=== PATIENT | male | born 1960 ===

== ENCOUNTER 2024-10-27 10:17 | Inpatient (IN) | payer OTHER ==
[~2024-10-27] VITALS: Ht 175.3 cm; Wt 87.0 kg
[2024-10-27 16:33] VITALS: BP 92/73
[2024-10-27 16:53] VITALS: BP 92/73
[2024-10-27] MEDS ORDERED: Benztropine Me0.5 MG PO (16:55)
[2024-10-27] MEDS ORDERED: FLUO10 PO (16:55)
[2024-10-27] MEDS ORDERED: SAPHRIS10 M1 SL ×2 (16:56→17:01)
[2024-10-27] MEDS ORDERED: MIRT15 PO (16:57)
[2024-10-27] MEDS ORDERED: PROP10 PO (16:59)
[2024-10-27] MEDS ORDERED: Polyethylene Glycol 3350 17 gm PO PRN (17:45)
[2024-10-27] MEDS ORDERED: Haloperidol Lactate Inj. 5 MG/ML Injection IM PRN (17:50)
[2024-10-27] MEDS ORDERED: Aluminum Hydroxide 320MG/5ML 473 ML PO PRN (17:50)
[2024-10-27] MEDS ORDERED: Ondansetron 4 MG SoluTab MM PRN (17:50)
[2024-10-27] MEDS ORDERED: DiphenhydrAMINE HCl 50 MG/ML 1ML Vial IM PRN (17:55)
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
[2024-10-27 20:10] VITALS: BP 92/61
--- NOTE | 2024-10-27 23:01 | NUR ---
MID SHIFT SUMMARY Patient is a very pleasant, alert and oriented man who was admitted to us from [place]. He spent his afternoon with his peers in the day room. and also participated in snack time. During his evening assessment, he stated He has chronic (fleeting) SI, and that he currently was having it. He denies HI, and tactile hallucinations, but says he frequently has AV hallucinations. He was very grateful for being sent to [facility]. He is hoping that some new strategies will work on his chronic SI. Will continue close monitoring every 15 minutes for safety and comfort
--- NOTE | 2024-10-28 04:16 | NUR ---
END OF SHIFT UPDATE ASSUMED CARE OF PT AT 0015. NO ACUTE CHANGES. PT HAS REMAINED IN BED THROUGHOUT THE NIGHT. Q15 MINUTE CHECKS TO CONTINUE.
[2024-10-28 07:47] LABS: CHOL/HDL RATIO 4.0; Cholesterol 203 mg/dL (50-200); HDL Cholesterol 51 mg/dL (>39); LDL/HDL RATIO 2.6; Low Density Lipoprotein Chol 133 mg/dL (0-110); Triglycerides 95 mg/dL (30-160); Very Low Density Lipoprot Chol 19 mg/dL (6-32)
--- NOTE | 2024-10-28 08:30 | NUR ---
PT C/O INCREASED ANXIETY THIS MORNING WHICH HE RATES AT 10/10. STATES THAT HE DIDN'T SLEEP WELL LAST NIGHT AND WOKE WITH NIGHT TERRORS. ENCOURAGED PT TO COMMUNICATE WITH STAFF IF THIS HAPPENS SO THAT WE CAN ASSIST HIM. PT MEDICATED PER EMAR WITH PRN FOR MASS SCORE OF 3. PT RETURNED TO HIS ROOM AND STATED HE WAS GOING TO TRY TO SLEEP.
[2024-10-28] MEDS ORDERED: Multivitamins 1 Tab PO SCH (09:00)
[2024-10-28 09:07] VITALS: BP 113/65
--- NOTE | 2024-10-28 16:28 | NUR ---
SHIFT SUMMARY: PT ALERT, ORIENTED AND COOPERATIVE WITH CARE. HE STATES THAT HE IS STILL HAVING THOUGHTS OF SUICIDE BUT DENIED HAVING INTENT OR A PLAN. PT AFFECT IS EUTHYMIC AND HAS APPROPRIATE EYE CONTACT. HE DENIES AUDITORY HALLUCINATIONS BUT STATES THAT HE IS STILL SEEING "SHADOW PEOPLE" HE STATES THAT HE DIDN'T SLEEP WELL LAST NIGHT AND HAD NIGHT TERRORS. THIS AM C/O 12/17 ANXIETY AND WAS MEDICATED PER EMAR WITH PRN. PT WAS PRESENT FOR MEALS AND GROUPS. HE SPENT MUCH OF HIS DAY RESTING IN HIS ROOM.
[2024-10-28 19:17] VITALS: BP 99/64
--- NOTE | 2024-10-28 20:35 | NUR ---
MEDICATION MASS SCORE: PATIENT C/O ANXIETY WORSENING PATIENT NEARS BEDTIME SECONDARY TO HAVING VIVID NIGHT "TERRORS" LAST NIGHT. HE REQUESTED VISTARIL "SINCE IT HELPED LAST TIME". GIVEN VISTARIL PRN FOR ANXIETY SCORE 5/10. CONTINUING TO MONITOR FOR SAFETY AND EFFECTIVENESS.
--- NOTE | 2024-10-29 04:49 | NUR ---
SHIFT SUMMARY: PATIENT WAS IN THE DAYROOM AT THE BEGINNING OF THE SHIFT, WATCHING TELEVISION WITH STAFF AND PEERS. HE STATED THAT HIS DAY WAS "OKAY". HE STATED, "I'M LEARNING A LOT HERE. I WANT TO LEARN A LOT OF DIFFERENT WAYS TO COPE." HE WAS PLEASANT AND COOPERATIVE WITH CARES. HE DENIED SUICIDAL IDEATION, THOUGHTS OF SELF HARMING AND A/V/T HALLUCINATIONS. HE PARTICIPATED IN SNACK AND WRAP UP GROUP AT 2030 IN THE DINING AREA, AND WAS COMPLIANT WITH EVENING MEDICATIONS. HE REQUESTED AND WAS GIVEN VISTARIL WITH HIS EVENING MEDS, FOR 3/10 ANXIETY SECONDARY TO CONCERN OF A REPEAT OF NIGHT TERRORS HAPPENED THE NIGHT BEFORE. THE VISTARIL WAS EFFECTIVE, WITH PATIENT RESTING QUIETLY THROUGHOUT THE NIGHT WITH EYES CLOSED AND RESPIRATIONS CONFIRMED. CONTINUOUS MONITORING FOR SAFETY WITH Q15 MINUTE CHECKS.
[2024-10-29 08:49] VITALS: BP 111/71
--- NOTE | 2024-10-29 17:17 | NUR ---
SHIFT SUMMARY PT IS AA&O TO PERSON, PLACE, AND SITUATION. SPEECH AND EYE CONTACT IS APPROPRIATE. HE REPORTS MOOD ANXIOUS. AFFECT IS RELAXED AND CALM. HE REPORTS PASSIVE SI. HE DENIES AH. HE REPORTS SHADOW PEOPLE. HE HAS BEEN UP FOR MEALS AND GROUPS. HE HAS BEEN IN THE TV ROOM OCCASIONALLY. PT IS COMPLIANT WITH MEDICATIONS. HE DENIES ANY SIDE EFFECTS. ABILIFY 5MG WAS ADDED TO MEDICATIONS TODAY. PT DENIES ANY QUESTIONS OR CONCERNS. WILL CONTINUE PLAN OF CARE
[2024-10-29 19:17] VITALS: BP 144/129
[2024-10-29 19:19] VITALS: BP 110/69
--- NOTE | 2024-10-30 05:37 | NUR ---
SHIFT SUMMARY Pt is A&O, calm, cooperative, eye contact is appropriate. Pt s mood is anxious, depressed affect is constricted. Pt endorses having SI thoughts, but has no plan, intent, or means at this time. Pt also endorses VH of shadow movement in his peripheral vision. Pt denies HI and AH. Pt endorsed some discomfort in his left shoulder RT shoulder replacement, but did not rate his pain and declined PRN medications. He stated that he normally uses [place] Patches for shoulder pain. Pt was active on the milieu during the evening, watching TV with peers. Staff continues to monitor q15m for safety and wellness.
[2024-10-30 08:04] VITALS: BP 90/72
[2024-10-30 08:50] VITALS: BP 101/70
[2024-10-30] MEDS ORDERED: Lidocaine 4% 1 Patch TOP SCH (13:05)
[2024-10-30 13:11] VITALS: BP 111/74
--- NOTE | 2024-10-30 14:51 | NUR ---
SHIFT SUMMARY NO ACUTE EVENTS TODAY. PT DENIES HI, AVTH. ENDORSES SI THAT IS CHRONIC AND JUST "SITS THERE", W/ NO INTENT OR PLAN TO ACT ON SI. PT C/O OF PAIN IN LEFT SHOULDER FROM PREVIOUS SHOULDER SURGERY. MANAGED WELL PER PT W/ IBUPROFEN AND LIDOCAINE PATCH. PT ALSO EXPRESSED THIS AM THAT HE GETS "TRIGGERED" WHEN HE HEARS OTHERS "COMPLAINING ABOUT THEIR PROBLEMS".
[2024-10-30 19:35] VITALS: BP 101/64
--- NOTE | 2024-10-30 23:47 | NUR ---
SHIFT SUMMARY Pt is A&O, calm, cooperative, eye contact is appropriate. Pt s mood is "piss poor," depressed, affect is constricted. Pt endorses having SI thought, which are chronic, but feels extremely safe here. Pt also endorses VH of shadows. Pt denies HI and AH. Pt stated that his depression increased today after he experienced a VH of a shadow that tried to get out of the room when he lay down for a nap. Pt asked for PRN melatonin for sleep and hydroxyzine for anxiety 10/10w before he goes to bed. Staff continues to monitor q15m for safety and wellness.
--- NOTE | 2024-10-31 05:02 | NUR ---
ASSUMED CARE AT 0000. REPORT TAKEN FROM MARCIANO JAIME. PT HAS BEEN ASLEEP WITHOUT ANY INTERRUPTIONS. WILL CONTINUE TO MONITOR Q 15 MINS.
[2024-10-31 07:53] VITALS: BP 99/66
[2024-10-31 14:16] VITALS: BP 113/81
--- NOTE | 2024-10-31 17:28 | NUR ---
SHIFT SUMMARY PT CONTINUES TO ENDORSE SI W/ NO INTENT TO ACT/PLANS. PT STATES THAT HE FEELS SAFE ON UNIT. PT STATES THAT SI WAS WORSE THIS AM D/T PT'S SAYING "MEAN THINGS" ABOUT SOMEONE, WOULD NOT ELABORATE. PT ALSO ENDORSES VISUAL HALLUCINATIONS IN THE "LIKE SHADOWS IN THE CORNER OF MY EYE". PT PLEASANT AND COOPERATIVE, HAS BEEN SLEEPING/NAPPING OR IN DAYROOM. DENIES HI AND ATH. PT BLOODPRESSURE SOFT, DR NOTIFIED W/ PROPANOLOL ORDER CHANGED.
[2024-10-31 19:21] VITALS: BP 106/77
--- NOTE | 2024-11-01 06:14 | NUR ---
SHIFT SUMMARY Pt is A&O, calm, cooperative, eye contact is appropriate. Pt s mood is isolative, depressed, affect is constricted. Pt endorses having SI thoughts, which are chronic, without plan or intent and states that he is safe here. Pt also endorses VH of "shadows." Pt denies HI and AH. Pt stated his paranoia "spiked" today while in his room and has been very anxious. PRN hydroxyzine given at HS med pass, MASS score 2. Pt active on the milieu throughout the evening, watching TV in the dayroom with peers. Staff continues to monitor q15m for safety and wellness.
[2024-11-01 08:49] VITALS: BP 109/57
[2024-11-01 15:16] VITALS: BP 108/71
--- NOTE | 2024-11-01 17:08 | NUR ---
SHIFT SUMMARY PT ENDORSES SI WITHOUT A PLAN. HE ENDORSES FEELING DEPRESSED. HE WAS CALM AND COMPLIANT WITH ALL MEDICATIONS AND MILIEU BEHAVIOR. PT DENIES ANY HUALLUCINATIONS. HE C/O ANXIETY 11/17 THIS AM AND WAS MEDICATED WITH PRN VISTARIL (SEE MASS SCORE). PT HOLD AND VOLUNTARY FORM SIGNED. NO OTHER ACUTE ACTIVITY TO REPORT.
[2024-11-01 19:00] VITALS: BP 124/86
--- NOTE | 2024-11-02 06:02 | NUR ---
SHIFT SUMMARY Pt is A&O, calm, cooperative, eye contact is appropriate. Pt s mood is "tired," depressed, affect constricted. Endorses having SI thoughts, which are chronic, without plan or intent and states that he is safe here. Pt also endorses VH of shadows. Pt denies HI, AH, and current pain. Pt has PRN zolpidem available now, and did request it along with his HS meds. Staff continues to monitor q15m for safety and wellness.
--- NOTE | 2024-11-02 17:03 | NUR ---
SHIFT SUMMARY PT CALM AND COOPERATIVE THIS SHIFT. HE ENDORSES SI WITHOUT A PLAN AND STATES HE FEELS LIKE HE GOT MUCH BETTER SLEEP AFTER RECIEVING THE AMBIEN LAST NIGHT. PT WAS ACTIVE IN THE MILIEU AND CURTEOUS TO PEERS. HE DENIES HI/AH/VH/TH. PT IS COMPLIANT WITH MEDICATIONS. NO PRN MEDICATIONS WERE NEEDED THIS SHIFT. NO ACUTE ACTIVITY TO REPORT THIS SHIFT.
[2024-11-02 20:53] VITALS: BP 132/88
--- NOTE | 2024-11-03 04:09 | NUR ---
SHIFT SUMMARY: PATIENT WAS IN THE DAYROOM AT THE BEGINNING OF THE SHIFT. HE ANSWERED POLICE COMMUNICATIONS OPERATOR QUESTIONS IN A LOGICAL AND LINEAR MANNER. HE STATED THAT "I ALWAYS FEEL SUICIDAL" BUT ADDED, "I FEEL SAFE HERE AND I WON'T DO ANYTHING HERE". HE STATED CONCERNS ABOUT HIS DISCHARGE AND GOING BACK TO [place], ALTHOUGH HE STATED, "MY ROOMMATE IS ALSO MY FRIEND, AND HE IS SUPPORTIVE". HE DENIED THOUGHTS OF SELF HARMING OR A/V/T HALLUCINATIONS, ALTHOUGH HE STATED, "SOMETIMES I FEEL LIKE THERE IS SOMETHING OR SOMEONE WHO WANTS ME TO GO AHEAD AND ". HE STATED HE "CAN RESIST" IN A SAFE ENVIRONMENT, AND NAMED THE [facility] A SAFE ENVIRONMENT. PATIENT PARTICIPATED IN SNACK AND WRAP UP GROUP AT 2030. HE WAS COMPLIANT WITH EVENING MEDICATIONS. HE STAYED UP TO WATCH TELEVISION FOR A TIME, AND THEN WENT TO BED, WHERE HE WAS NOTED TO BE RESTING QUIETLY WITH EYES CLOSED AND RESPIRATIONS CONFIRMED FOR THE REMAINDER OF THE SHIFT. CONTINUING TO MONITOR FOR SAFETY WITH Q15 MINUTE CHECKS.
[2024-11-03 09:07] VITALS: BP 156/71
[2024-11-03 14:47] VITALS: BP 137/96
--- NOTE | 2024-11-03 17:15 | NUR ---
SHIFT SUMMARY PT DENIES HI. THIS AM HE ENDORSED HEARING A VOICE TELL HIM, "WHY HAVEN'T YOU KILLED YOURSELF YET" WHICH MADE HIS SI "WORSE" TODAY. DENIES ANY PLAN TO ACT/INTENT. SEE'S SHADOW SHAPES/PEOPLE. PT HAS BEEN PLEASANT AND COOPERATIVE AND GOING TO GROUPS/MEALS. IS CURRENTLY WATCHING TV IN DAYROOM AT THIS TIME. NO ACUTE EVENTS TODAY.
[2024-11-03 19:34] VITALS: BP 116/73
--- NOTE | 2024-11-04 04:23 | NUR ---
SHIFT SUMMARY: PATIENT WAS IN THE DAYROOM WATCHING TELEVISION WITH STAFF AND PEERS AT THE BEGINNING OF THE SHIFT. HE WAS IN A PLEASANT AND FRIENDLY MOOD, AND STATED THAT THE DAY "WENT PRETTY WELL". HE DENIED SUICIDAL IDEATION, THOUGHTS OF SELF HARMING AND A/V/T HALLUCINATIONS AT THAT MOMENT. HOWEVER, HE DID ELABORATE THAT HE STILL HAS "FLEETING THOUGHTS THAT TELL ME TO KILL MYSELF OR ASK WHY I HAVEN'T YET". HE WAS ABLE TO NAME SOME COPING SKILLS TO HELP GET HIM THROUGH THOSE TIMES. HE STATED, "WATCHING TELEVISION IS A GOOD COPING SKILL FOR ME, BECAUSE IT DISTRACTS ME FROM THE VOICE". HE STATED THAT HE KNOWS "I WILL STILL FEEL SUICIDAL" BUT THAT HE HOPES "WITH THE COPING SKILLS AND MY SUPPORT SYSTEM I CAN GET PAST THEM". HE PARTICIPATED IN SNACK AND WRAP UP GROUP IN THE DINING AREA AT 2030, AND WAS COMPLIANT WITH EVENING MEDICATIONS. HE REQUESTED AND WAS GIVEN AMBIEN FOR INSOMNIA. HE STATED, "I LIKE IT BECAUSE WHEN I TAKE IT I DON'T HAVE NIGHTMARES". HE REMAINED UP FOR A TIME AFTER SNACK, AND WAS THEN NOTED TO BE IN BED RESTING WITH EYES CLOSED AND RESPIRATIONS CONFIRMED FOR THE REMAINDER OF THE SHIFT. CONTINUING TO MONITOR FOR SAFETY WITH Q15 MINUTE CHECKS.
[2024-11-04 07:29] VITALS: BP 102/71
[2024-11-04 08:11] VITALS: BP 121/72
--- NOTE | 2024-11-04 10:24 | NUR ---
SHIFT ASSESSMENT: PT WAS OUT IN THE PT MILIEU AT THE START OF SHIFT. HE ENDORSED SI WITHOUT A PLAN AND ALSO ENDORSED AUDITORY/VISUAL HALLUCINATIONS, "VOICES TALKING ABOUT MY EXISTANCE AND HOW IT WOULD BE BETTER IF I WASN'T HERE. I SEE SHADOWS AND THAT KICKS IN MY PARANOIA." PT DENIED ANXIETY AT THIS TIME. HE REPORTED 7/10w PAIN TO HIS LEFT SHOULDER. HE DESCRIBED HIS MOOD SO FAR SO GOOD...ANYTHING CAN HAPPEN TO MAKE IT A BAD DAY THOUGH." PT WAS PLEASANT AND COOPERATIVE WITH CARE.
--- NOTE | 2024-11-04 17:45 | NUR ---
PT HAS ATTENDED GROUPS AND BEEN ACTIVE IN THE PT MILIEU. HE HAS BEEN PLEASANT AND COOPERATIVE WITH CARE. PT HAS APPEARED TO REMAIN IN GOOD HUMOR. HE IS PRESENTLY WATCHING A MOVIE WITH PEERS.
[2024-11-04 20:02] VITALS: BP 118/78
--- NOTE | 2024-11-05 04:41 | NUR ---
SHIFT SUMMARY: PATIENT WAS UP IN THE MILIEU AT THE BEGINNING OF THE SHIFT. HE WAS WATCHING TELEVISION IN THE DAY ROOM AND INTERACTING PLEASANTLY WITH STAFF AND PEERS. HE WAS ABLE TO ANSWER ALTERATION HAND QUESTIONS IN A LOGICAL AND LINEAR MANNER. HE STATED, "I ALWAYS HAVE SOME FEELINGS OF SUICIDE," BUT ADDED, "I THINK I CAN USE THE COPING SKILLS I'VE LEARNED HERE. THEY ARE HELPING." HE STATED, "I FEEL SAFE HERE, LIKE I CAN TALK TO SOMEONE IF I NEED TO." HE DID ADMIT TO "SUPPORTIVE FRIENDS" AT HOME. HE STATED THAT HE WAS NOT HAVING A/V/T HALLUCINATIONS, "BUT SOMETIMES THERE IS A VOICE, AND IT TELLS ME TO KILL MYSELF OR ASKS ME WHY I HAVEN'T DONE IT YET." HE STATED, "WATCHING TELEVISION OR TALKING TO OTHERS HELPS DISTRACT ME FROM THE VOICE." HE PARTICIPATED IN SNACK AND WRAP UP GROUP AT 2030, AND THEN WATCHED TELEVISION FOR A TIME. HE THEN WENT TO BED, WHERE HE WAS NOTED TO BE RESTING QUIETLY WITH EYES CLOSED AND RESPIRATIONS CONFIRMED FOR THE REMAINDER OF THE SHIFT. CONTINUING TO MONITOR FOR SAFETY WITH Q15 MINUTE CHECKS.
[2024-11-05 09:39] VITALS: BP 115/79
--- NOTE | 2024-11-05 17:15 | NUR ---
SHIFT SUMMARY: PT ALERT, ORIENTED AND COOPERATIVE WITH CARE. PT STATES THAT HE IS HAVING SUICIDAL THOUGHTS BUT DENIES A PLAN OR INTENT WHILE IN U. PT C/O HEADACHE TODAY AND WAS MEDICATED PER EMAR WITH PRN MEDICATIONS AND REPORTED RELIEF FROM PAIN. PT STATES THAT HE WOKE UP DURING THE NIGHT AND SAW SOMEON THAT "WASN'T THERE STANDING OVER MY BED". HE REPORTS THAT HE HAD A HARD TIME SLEEPING AFTER THAT. PT ACTIVE IN UNIT MILIEU TALKING WITH PEERS AND STAFF. HE SPENT TIME IN THE DAY ROOMM WATCHING TV AND ATTENDED GROUP.
[2024-11-05 19:22] VITALS: BP 115/87
--- NOTE | 2024-11-06 04:24 | NUR ---
SHIFT SUMMARY: PT A/O X4. PT STATES THAT HE IS SI POSITIVE WITH NO PLAN TO HARM SELF WHILE HERE. DOES HAVE AH ALSO FOR PARANOIA TO HEARING NOISE BUT UNABLE TO IDENTIFY WHAT IT IS SAYING. PT FEELS SAFE HERE IN THE U. HAS SLEPT SINCE GOING TO BED AROUND 2200. WILL CONTINUE TO MONITOR Q 15 MIN FOR SAFETY AND WELLNESS.
[2024-11-06 07:56] VITALS: BP 109/71
--- NOTE | 2024-11-06 16:36 | NUR ---
SHIFT SUMMARY: PT ALERT, ORIENTED AND COOPERATIVE WITH CARE. STATED THAT HE WAS FEELING "A LITTLE ROUGH" THIS MORNING. STATES, "I HAD NIGHTMARES LAST NIGHT". HE STATES THAT HE HAS THOUGHTS OF SELF HARM BUT DENIES INTENT OR PLAN. HE WAS MEDICATED THIS AM WITH PRN PER EMAR FOR HEADACHE AND REPORTED RELIEF. PT WAS ACTIVE IN THE UNIT MILIEU. SPENT TIME IN THE DAY ROOM WATCHING TV, TALKING WITH PEERS AND STAFF. HE ATTENED AFTERNOON GROUP AND WAS PRESENT FOR MEALS.
[2024-11-06 20:48] VITALS: BP 120/76
--- NOTE | 2024-11-06 23:09 | NUR ---
pt c/o heartburn frequently this evening. Stated that he has been suffering with this for 2-3 weeks. Was given medication this evening per orders and per his request but patient would like daily med to decrease acid if possible. Will review with MD tomorrow.
--- NOTE | 2024-11-07 04:22 | NUR ---
SHIFT SUMMARY: THIS RN TOOK OVER CARE OF PATIENT AT 0030. PATIENT HAS C/O HEARTBURN AND WOULD LIKE A DAILY MEDICATION. PATIENT WENT TO BED AFTER SNACK AT 2200, AND WAS NOTED TO BE RESTING QUIETLY WITH EYES CLOSED AND RESPIRATIONS CONFIRMED FOR THE REMAINDER OF THE SHIFT. NO ISSUES OR CONCERNS NOTED, OTHER THAN THE STOMACH ACID CONCERN. CONTINUING TO MONITOR FOR SAFETY WITH Q15 MINUTE CHECKS.
[2024-11-07 07:46] VITALS: BP 119/83
--- NOTE | 2024-11-07 17:45 | NUR ---
SHIFT SUMMARY: PT ALERT, ORIENTED AND COOPERATIVE WITH CARE. STATES THAT HE DIDN'T SLEEP WELL LASTNIGHT AND THAT HE HAD NIGHTMARES. VERBALIZES PASSIVE THOUGHTS OF SELF HARM BUT DENIES HAVING A PLAN OR INTENT. PT HAS APPROPRIATE EYE CONTACT AND EUTHYMIC AFFECT. PT WAS ACTIVE IN UNIT MILIEU, SPENT TIME IN THE DAY ROOM WATCHING TV AND TALKING WITH PEERS AND STAFF.
--- NOTE | 2024-11-07 19:18 | NUR ---
PT CONTINUES TO C/O FEELING ACID REFLUX AND NOT TOLERATING EATING/DRINKING WELL. STATES HE THREW UP TWICE TODAY IN BATHROOM. PT DESCRIBES FEELING BURNING AND " IF SOMETHING IS GETTING STUCK RIGHT HERE" AND POINTS TO LOW STERNUM. ASKED IF PATIENT HAD EVER BEEN TOLD HE HAS MEDICAL ISSUES SUCH A NARROWING IN THE ESOPHAGUS OR A HIATAL HERNIA AND HE STATES NO. HE STATES THE PAIN GETS SO INTENSE AFTER EATING THAT HE NEEDS TO VOMIT.
--- NOTE | 2024-11-08 04:27 | NUR ---
SHIFT SUMMARY: THIS RN TOOK OVER CARE OF PATIENT AT 0030. PATIENT WOULD LIKE OMEPRAZOLE OR SIMILAR TO HELP WITH HIS ESOPHAGEAL ISSUES. HE IS WILLING TO SEE A HOSPITALIST IF NEEDED. HE WAS RESTING QUIETLY IN BED WITH EYES CLOSED AND RESPIRATIONS CONFIRMED FOR THE REMAINDER OF THE SHIFT. CONTINUING TO MONITOR FOR SAFETY WITH Q15 MINUTE CHECKS.
[2024-11-08 07:49] VITALS: BP 113/87
--- NOTE | 2024-11-08 17:36 | NUR ---
SHIFT SUMMARY PT HAS BEEN UP ALL DAY AND ENGAGED IN THE MILIEU, PARTICIPATING IN ALL GROUPS AND MEALS. HE IS COMPLIANT WITH MEDICATIONS AND VERY PLESANT. HE DOES ENDORSE VERY "FAINT" FLEETING THOUGHTS OF SELF HARM. STATES NOT HAVING A PLAN OR INTENT. HE DID ASK FOR MAALOX THIS MORNING AFTER BKFT AND HAS DENIED ANYOTHER ISSUES THE REST OF THE DAY. PT HAS RECEIVED Q15 MIN VISUAL SAFETY CHECKS THIS SHIFT
[2024-11-08 20:46] VITALS: BP 133/89
--- NOTE | 2024-11-08 23:51 | NUR ---
MID SHIFT SUMMARY FOR REPORT OFF: PT HAD UNEVENTFUL EVENING. PARTICIPATED IN SNACK AND WATCHED TV FOR A SHORT TIME. C/O STOMACH/ESOPHAGEAL PAIN AFTER ANY INTAKE OF FOOD/FLUIDS. MAALOX GIVEN PER HIS REQUEST AND PRN ORDERS. DENIED ANY ACTIVE THOUGHTS OF SUICIDE BUT DID HAVE INCREASED ANXIETY AND VISUAL HALLUCINATIONS THIS EVENING. MEDICATED WITH ZYPREXA PER ORDERS. PT CURRENTLY SLEEPING IN ROOM.
--- NOTE | 2024-11-09 04:34 | NUR ---
SHIFT SUMMARY took over care at 0030. Patient has been sleeping rather restlessly since that time. Please see MID SHIFT SUMMARY under nurses notes for more detail ffrom earlier in the evening. Will continue close monitoring every 15 minutes for safety and comfort
[2024-11-09 07:48] VITALS: BP 101/68
[2024-11-09] MEDS ORDERED: ABILIFY MYCITE20 M2 PO (12:35)
[2024-11-09] MEDS ORDERED: LORA10ER PO (12:36)
--- NOTE | 2024-11-09 12:51 | NUR ---
MID SHIFT SUMMARY PT ENDORSED VISUAL HALLUCINATIONS OF SLIGHT FLOATING SHADOWS. HE WILL DC AT 2PM TODAY WITH SECURE TRANSPORT TO HIS HOME. SAFETY PLAN COMPLETED WITH CECY TARIQ.
--- NOTE | 2024-11-09 13:04 | NUR ---
Patient is up for discharge today. His safety plan was created, with his help, in the even he has symptoms post discharge. After finding out that his discharge was definite for this day, he told A that "if I have to leave, I will just kill myself". Patient has not reported SI for days, since the last time staff planned to discharge him, which resulted in a longer stay. This grant writer notified the provider and tried to talk to the patient who states "I am not ready, I'm having thoughts". Also, patient was asked what pharmacy to he'd like his prescriptions sent to and the patient stated "i am not going to pick them up anyways". Patient sat in his room rather than in the dinning room when lunch arrived. He says "i'm not going to eat". Patients affect changed to flat, blunted and his mood is irritable. The provider did speak with the patient and the patient did not report suicidal feelings to the provider.
--- NOTE | 2024-11-09 14:07 | NUR ---
Discharge- Patient was discharged to home today. [email or web address] [place]. Patients discharge paperwork was discussed with the patient and his safety plan was completed prior to dischsrge. Patients belongings were given back and he signed for them. Transportation provided by medical transport through insurance.
--- NOTE | 2024-11-09 14:16 | NUR ---
MHA came to find nurse to say that the patient wanted to see me. Patient reported to this proposal manager writer that he was okay, and just needed time to cool down earlier when he was notified about discharge. He said that he would be safe and will infact nut picker his medications. Patient was discharged at 1404.
== END 2024-11-09 14:04 | disposition home or self-care (01) | DRG 885 ==
LOC: BHU 10:17
PROVIDERS: ADMIT Psychiatry & Neurology Psychiatry
DX: F33.2 Major depressive disorder, recurrent severe without psychotic features (principal); F15.20 Other stimulant dependence, uncomplicated; Z96.619 Presence of unspecified artificial shoulder joint; Z98.890 Other specified postprocedural states; Z88.8 Allergy status to other drugs, medicaments and biological substances; Z79.899 Other long term (current) drug therapy
CPT/HCPCS: 36415; 80061; 83036; A9270